=== PATIENT | female | born 1935 | race Caucasian/White ===

== ENCOUNTER 2018-02-10 08:58 | Observation (INO) ==
--- NOTE | 2018-02-10 09:34 | Emergency Department Note ---
Disposition Clinical Impression: Rectal bleeding Anemia Qualifiers: Anemia type: unspecified type Qualified Code(s): D64.9 - Anemia, unspecified Disposition: Admitted As Inpatient Condition: Fair Referrals: Philomena Hill CNP [Primary Care Provider] - Forms: ED Satisfaction Letter, Work/School Release Time of Disposition: 12:02 General Adult HPI - General Chief complaint: ED General Medical Stated complaint: Hallucinations/UTI Time Seen by Provider: 02/10/18 09:22 Source: patient, family Mode of arrival: ambulatory Limitations: no limitations Nursing Notes Reviewed: Yes Vital Signs Reviewed: Yes - History of Present Illness HPI Narrative: 82-year-old who comes in stating that she has had bugs crawling out of her skin for about a month according to family. Patient has complained of bugs crawling out of her skin she has used tape to try and capture them up. It looks like when she shows me this that it is scabs that have been torn off her skin. Left arm shows significant areas where she has picked the right does not show a large amount to the patient is right handed. Pt Subjective Complaint: Possible hallucinations Location: left, upper extremity Pain Scale: 0 - Related Data Previous Rx's Medication Instructions Recorded HYDROcodone/Acet 5/325 mg [[place] 1 tab PO Q6H PRN #15 tab 04/27/17 5-325 mg] diazePAM [Valium] 5 mg PO TID #12 tablet 04/27/17 Allergies Allergy/AdvReac Type Severity Reaction Status Date / Time egg Allergy Anaphylaxis Verified 04/23/16 12:28 All systems ED: reviewed and negative except as stated. Constitutional: Denies: fever, chills, weakness, weight change Eyes: Denies: eye pain, eye discharge, vision change ENT ED: Denies: ear pain, throat pain, dental pain, hearing loss, epistaxis, congestion, dysphagia Cardiovascular: Denies: chest pain, palpitations, dyspnea on exertion, edema, syncope Respiratory: Denies: cough, dyspnea, wheezes, hemoptysis, stridor Gastrointestinal: Denies: abdominal pain, nausea, vomiting, diarrhea, constipation, hematemesis, melena, hematochezia Genitourinary: Denies: dysuria, frequency, hematuria, discharge Musculoskeletal: Denies: back pain, neck pain, arthralgia, myalgia Integumentary: Reports: rash. Denies: abrasion, lesions Neurological: Denies: headache, weakness, numbness, paresthesias, confusion, abnormal gait, vertigo Psychiatric: Denies: anxiety, depression, suicidal thoughts, homicidal thoughts , auditory hallucinations, visual hallucinations Endocrine: Denies: fatigue Hematological/Lymphatic: Denies: easy bleeding, easy bruising Allergic/Immunologic: Denies: facial swelling, urticaria Past Medical History - Past Medical History Medical history: Reports: atrial fibrillation, CHF, hypertension Psychiatric history: Reports: no psych history - Social History Smoking Status: Never smoker Smokeless Tobacco Status: No Alcohol use: Reports: none Drug use: Reports: none Physical Exam - General Limitations: no limitations General appearance: alert - Head Head exam: atraumatic, normocephalic, normal inspection - Eye Eye exam: Present: normal appearance, PERRL, EOMI - ENT ENT exam: normal exam, normal oropharynx, mucous membranes moist - Neck Neck exam: Present: normal inspection, full ROM, trachea midline - Chest Chest inspection: Present: normal inspection, symmetric chest wall rise - Respiratory Respiratory exam: Present: normal lung sounds bilaterally - Cardiovascular Cardiovascular exam: Present: regular rate, normal rhythm, normal heart sounds - Abdominal Exam Abdominal exam: Present: soft, Non-Tender. Absent: tenderness, distention, guarding, rebound, rigidity - Rectal Exam Clinical Microbiologist present during exam: Yes Rectal exam: Present: heme (+) stool - Extremities Exam Extremities exam: Present: normal inspection, full ROM. Absent: tenderness, pedal edema - Expanded Lower Extremity Exam Neurovascular/Tendon exam: Absent: motor deficit, sensory deficit, tendon deficit - Back Exam Back exam: Present: normal inspection, full ROM. Absent: tenderness - Neurological Exam Neurological exam: Present: alert, oriented X3 - Psychiatric Psychiatric exam: Present: normal affect, normal mood - Skin Skin exam: Present: warm, dry, intact, normal color, rash (Follicular rash with scabs appears that she has been picking at these scabs there is no evidence of infection at this time.) Course - Reevaluation(s) Reevaluation #1: 82-year-old who comes in with some hallucinations and seeing bugs crawling on her skin. During the workup she was found to have a hemoglobin of 8.4 previous hemoglobin in the normal range. Patient has not had a colonoscopy. On exam her stool was slightly guaiac positive. Previous hemoglobin was in the normal range. Patient normally has her care done at [facility] and request transfer. Time: 12:00 Reevaluation #2: Patient wanted transfer to [facility] however they have no beds and they now are willing to be admitted here. Time: 17:32 - Consultations Consultation #1: Discussed with [facility] transfer center they will call us back with the bed. Time: 12:11 Consultation #2: [facility] informs us that they are not likely to have a bed in the near future. Time: 17:31 Consultation #3: Discussed with , admit. Time: 17:32 Vital Signs Temperature 97.9 F 02/10/18 09:11 Pulse Rate 70 02/10/18 09:11 Respiratory Rate 18 02/10/18 09:11 Blood Pressure 144/79 02/10/18 09:11 O2 Sat by Pulse Oximetry 97 02/10/18 09:11 Temperature 97.9 F 02/10/18 09:11 Pulse Rate 72 02/10/18 13:02 Respiratory Rate 18 02/10/18 13:02 Blood Pressure 142/74 02/10/18 13:02 O2 Sat by Pulse Oximetry 98 02/10/18 13:02 Oxygen Delivery Oxygen Delivery Room Air Medical Decision Making - Lab Data Lab results reviewed: Yes I reviewed the patient's lab results. Result diagrams: 02/10/18 16:34 02/10/18 09:30 Lab Results 02/10/18 02/10/18 02/10/18 Range/Units 09:30 09:30 09:30 WBC 8.4 (4.3-11.1) K/mcL RBC 3.98 (3.82-4.97) M/mcL Hgb 8.4 L (11.5-15.4) g/dL Hct 29.9 L (35.3-44.9) % MCV 75.1 L (83.0-100.0) fL MCH 21.1 L (28.0-33.3) pg MCHC 28.1 L (31.6-35.5) g/dL RDW 20.3 H (11.5-14.5) % Plt Count 273 (140-400) K/mcL MPV 10.6 (9.4-12.4) fL Immature Gran % 0.8 (0-4) % Seg Neutrophils % 74.9 % Lymphocytes % 14.9 % Monocytes % 6.1 % Eosinophils % 2.9 % Basophils % 0.4 % Neutrophils # 6.3 (1.6-8.9) K/mcL Lymphocytes # 1.3 (0.6-4.6) K/mcL Monocytes # 0.5 (0.0-1.3) K/mcL Eosinophils # 0.2 (0.0-0.6) K/mcL Basophils # 0.0 (0.0-0.2) K/mcL Nucleated RBCs/100 WBC 0.4 H (0) /100 WBC Platelet Estimate Normal (Normal) Hypochromasia Present A (Not Present) Anisocytosis 2+ A (Not Present) PT 14.7 H (9.4-12.1) Seconds INR 1.4 APTT 29.9 (26.0-36.0) Seconds Sodium 139 (136-145) mEq/L Potassium 3.8 (3.5-5.1) mEq/L Chloride 108 H (98-107) mEq/L Carbon Dioxide 27 (23-29) mEq/L BUN 17 (8-23) mg/dL Creatinine 0.69 (0.60-1.20) mg/dL Est GFR ( Amer) > 60 (> 60) Est GFR (Non-Af Amer) > 60 (> 60) BUN/Creatinine Ratio 25 (6-26) Glucose 128 H (70-105) mg/dL Calculated Osmolality 291 (280-300) Calcium 9.2 (8.6-10.3) mg/dL Total Bilirubin 0.9 (0.3-1.0) mg/dL Direct Bilirubin 0.3 H (0.0-0.2) mg/dL Indirect Bilirubin 0.6 (0.0-1.2) mg/dL AST 15 (13-39) Units/L ALT 8 (7-52) Units/L Alkaline Phosphatase 100 (34-104) Units/L Troponin I 0.06 H* (< 0.04) ng/mL Serum Total Protein 7.5 (6.4-8.9) g/dL Albumin 3.2 L (3.5-5.7) g/dL Globulin 4.3 H (2.4-3.5) g/dL Albumin/Globulin Ratio 0.7 L (1.1-2.2) TSH 0.024 L (0.340-5.600) mcIU/mL Urine Color (Yellow) Urine Clarity (Clear) Urine pH (5.0-8.0) pH Units Ur Specific [place] (1.010-1.025) Urine Protein (Neg-Trace) mg/dL Urine Glucose (UA) (Normal) mg/dL Urine Ketones (Negative) mg/dL Urine Blood (Negative) Urine Nitrite (Negative) Urine Bilirubin (Negative) Urine Urobilinogen (Normal) mg/dL Ur Leukocyte Esterase (Negative) Urine Microscopic RBC (0-3) per hpf Urine Microscopic WBC (0-3) per hpf Ur Squamous Epith Cells (None-Few) per lpf Urine Bacteria (None-Few) per hpf Hyaline Casts (None-Few) per lpf Ur Culture Indicated? (NO) Urine Opiates Screen (Zuakuz=087) ng/mL Ur Barbiturates Screen (Qigqyn=786) ng/mL Ur Phencyclidine Scrn (Cutoff=25) ng/mL Ur Amphetamines Screen (Dnyxak=8176) ng/mL U Benzodiazepines Scrn (Gbcgqz=925) ng/mL Urine Cocaine Screen (Cutoff= 300) ng/mL U Marijuana (THC) Screen (Cutoff = 50) ng/mL Ethyl Alcohol < 10 (Less than 10) mg/dL 02/10/18 02/10/18 02/10/18 Range/Units 09:32 09:32 16:34 WBC 9.3 (4.3-11.1) K/mcL RBC 3.89 (3.82-4.97) M/mcL Hgb 8.1 L (11.5-15.4) g/dL Hct 28.9 L (35.3-44.9) % MCV 74.3 L (83.0-100.0) fL MCH 20.8 L (28.0-33.3) pg MCHC 28.0 L (31.6-35.5) g/dL RDW 20.5 H (11.5-14.5) % Plt Count 283 (140-400) K/mcL MPV 10.3 (9.4-12.4) fL Immature Gran % (0-4) % Seg Neutrophils % % Lymphocytes % % Monocytes % % Eosinophils % % Basophils % % Neutrophils # (1.6-8.9) K/mcL Lymphocytes # (0.6-4.6) K/mcL Monocytes # (0.0-1.3) K/mcL Eosinophils # (0.0-0.6) K/mcL Basophils # (0.0-0.2) K/mcL Nucleated RBCs/100 WBC (0) /100 WBC Platelet Estimate (Normal) Hypochromasia (Not Present) Anisocytosis (Not Present) PT (9.4-12.1) Seconds INR APTT (26.0-36.0) Seconds Sodium (136-145) mEq/L Potassium (3.5-5.1) mEq/L Chloride (98-107) mEq/L Carbon Dioxide (23-29) mEq/L BUN (8-23) mg/dL Creatinine (0.60-1.20) mg/dL Est GFR ( Amer) (> 60) Est GFR (Non-Af Amer) (> 60) BUN/Creatinine Ratio (6-26) Glucose (70-105) mg/dL Calculated Osmolality (280-300) Calcium (8.6-10.3) mg/dL Total Bilirubin (0.3-1.0) mg/dL Direct Bilirubin (0.0-0.2) mg/dL Indirect Bilirubin (0.0-1.2) mg/dL AST (13-39) Units/L ALT (7-52) Units/L Alkaline Phosphatase (34-104) Units/L Troponin I (< 0.04) ng/mL Serum Total Protein (6.4-8.9) g/dL Albumin (3.5-5.7) g/dL Globulin (2.4-3.5) g/dL Albumin/Globulin Ratio (1.1-2.2) TSH (0.340-5.600) mcIU/mL Urine Color Yellow (Yellow) Urine Clarity Clear (Clear) Urine pH 6.0 (5.0-8.0) pH Units Ur Specific [place] 1.021 (1.010-1.025) Urine Protein Trace (Neg-Trace) mg/dL Urine Glucose (UA) Normal (Normal) mg/dL Urine Ketones Negative (Negative) mg/dL Urine Blood Negative (Negative) Urine Nitrite Negative (Negative) Urine Bilirubin Negative (Negative) Urine Urobilinogen Normal (Normal) mg/dL Ur Leukocyte Esterase Negative (Negative) Urine Microscopic RBC 0-3 (0-3) per hpf Urine Microscopic WBC 0-3 (0-3) per hpf Ur Squamous Epith Cells Many H (None-Few) per lpf Urine Bacteria None Seen (None-Few) per hpf Hyaline Casts None Seen (None-Few) per lpf Ur Culture Indicated? NO (NO) Urine Opiates Screen Negative (Bqivts=285) ng/mL Ur Barbiturates Screen Negative (Mqjtsg=720) ng/mL Ur Phencyclidine Scrn Negative (Cutoff=25) ng/mL Ur Amphetamines Screen Negative (Xnfgsl=6508) ng/mL U Benzodiazepines Scrn Negative (Ekutia=589) ng/mL Urine Cocaine Screen Negative (Cutoff= 300) ng/mL U Marijuana (THC) Screen Negative (Cutoff = 50) ng/mL Ethyl Alcohol (Less than 10) mg/dL - Radiology Data Radiology results reviewed: Yes I reviewed the patient's radiology results. Chest X-Ray 02/10/18 09:30 IMPRESSION: Increased opacities in the lower lungs bilaterally, right greater than left which could be artifactual and related to overlying soft tissue versus pleural effusions with adjacent airspace opacities. D/ : / 02/10/2018 10:16:51 Bailee Ricketts MD / [email or web address] Interpreting Provider: Bailee Ricketts MD Head CT 02/10/18 09:31 IMPRESSION: 1. No acute intracranial abnormality. D/ / 02/10/2018 10:46:43 Francesco Biggs MD / May Segura Interpreting Provider: Francesco Biggs MD - EKG Data EKG #1 EKG attestation: Yes I reviewed and interpreted this EKG. EKG results narrative: EKG shows a paced rhythm.
[2018-02-10 09:49] LABS: Bilirubin,Urine Negative (Negative); Blood,Urine Negative (Negative); Clarity,Urine Clear (Clear); Color,Urine Yellow (Yellow); Glucose,Urine (UA) Normal (Normal); Ketones,Urine Negative (Negative); Leukocyte Esterase,Urine Negative (Negative); Nitrite,Urine Negative (Negative); Protein,Urine Trace mg/dL (Neg-Trace); Specific Gravity,Urine 1.021 (1.010-1.025); Urobilinogen,Urine Normal (Normal)
[2018-02-10 09:53] LABS: Bacteria,Urine None Seen per hpf (None-Few); Hyaline Casts,Urine None Seen per lpf (None-Few); RBC,Urine 0-3 per hpf (0-3); Squamous Epithelial Cell,Urine Many per lpf (None-Few); WBC,Urine 0-3 per hpf (0-3)
[2018-02-10 10:00] LABS: Amphetamine Screen,Urine Negative ng/mL (Cutoff=1000); Barbiturate Screen,Urine Negative ng/mL (Cutoff=200); Benzodiazepines Screen,Urine Negative ng/mL (Cutoff=200); Cannabinoid Screen,Urine Negative ng/mL (Cutoff = 50); Cocaine Screen,Urine Negative ng/mL (Cutoff= 300); Opiate Screen,Urine Negative ng/mL (Cutoff=300); Phencyclidine Screen,Urine Negative ng/mL (Cutoff=25)
[2018-02-10 10:15] LABS: Lymphocytes % 14.9 %; Mean Corpuscular HGB Conc 28.1 g/dL (31.6-35.5); Mean Corpuscular Hemoglobin 21.1 pg (28.0-33.3); Nucleated Red Blood Cells 0.4 /100 WBC (0); Segmented Neutrophils % 74.9 %
[2018-02-10 10:17] LABS: Basophils % 0.4 %; Eosinophils # 0.2 K/mcL (0.0-0.6); Eosinophils % 2.9 %; Hematocrit 29.9 % (35.3-44.9); Hemoglobin 8.4 g/dL (11.5-15.4); Immature Granulocytes % 0.8 % (0-4); Lymphocytes # 1.3 K/mcL (0.6-4.6); Mean Corpuscular Volume 75.1 fL (83.0-100.0); Mean Platelet Volume 10.6 fL (9.4-12.4); Monocytes # 0.5 K/mcL (0.0-1.3); Monocytes % 6.1 %; Neutrophils # 6.3 K/mcL (1.6-8.9); Platelet Count 273 K/mcL (140-400); Red Blood Count 3.98 M/mcL (3.82-4.97); Red Cell Distribution Width 20.3 % (11.5-14.5)
[2018-02-10 10:21] LABS: INR 1.4; Prothrombin Time 14.7 Seconds (9.4-12.1)
[2018-02-10 10:24] LABS: Activated Partial Thrombo Time 29.9 Seconds (26.0-36.0)
[2018-02-10 10:31] LABS: Anisocytosis 2+ (Not Present); Hypochromasia Present (Not Present)
[2018-02-10 10:32] LABS: Platelet Estimate Normal (Normal)
[2018-02-10 10:43] LABS: Alanine Aminotransferase 8 Units/L (7-52); Albumin 3.2 g/dL (3.5-5.7); Albumin/Globulin Ratio 0.7 (1.1-2.2); Alkaline Phosphatase 100 Units/L (34-104); Aspartate Amino Transferase 15 Units/L (13-39); BUN/Creatinine Ratio 25 (6-26); Bilirubin,Direct 0.3 mg/dL (0.0-0.2); Bilirubin,Indirect 0.6 mg/dL (0.0-1.2); Bilirubin,Total 0.9 mg/dL (0.3-1.0); Blood Urea Nitrogen 17 mg/dL (8-23); Calcium 9.2 mg/dL (8.6-10.3); Carbon Dioxide 27 mEq/L (23-29); Chloride 108 mEq/L (98-107); Ethanol < 10 mg/dL (Less than 10); Globulin 4.3 g/dL (2.4-3.5); Glucose 128 mg/dL (70-105); Osmolality,Calculated 291 (280-300); Potassium 3.8 mEq/L (3.5-5.1); Sodium 139 mEq/L (136-145); Total Protein 7.5 g/dL (6.4-8.9); Troponin I 0.06 ng/mL (< 0.04); eGFR For African Americans > 60 (> 60); eGFR For Non-African Americans > 60 (> 60)
[2018-02-10 10:56] LABS: Thyroid Stimulating Hormone 0.024 mcIU/mL (0.340-5.600)
[2018-02-10 16:47] LABS: Hematocrit 28.9 % (35.3-44.9); Hemoglobin 8.1 g/dL (11.5-15.4); Mean Corpuscular Hemoglobin 20.8 pg (28.0-33.3); Mean Corpuscular Volume 74.3 fL (83.0-100.0); Mean Platelet Volume 10.3 fL (9.4-12.4); Platelet Count 283 K/mcL (140-400); Red Blood Count 3.89 M/mcL (3.82-4.97); Red Cell Distribution Width 20.5 % (11.5-14.5)
[2018-02-10 19:17] LABS: Triiodothyronine (T3) Free 3.75 pg/mL (2.50-3.90)
--- NOTE | 2018-02-10 20:24 | Internal Med History&Physical ---
<Cullen Macias - Last Filed: 02/10/18 21:17> Date of Encounter: 02/10/18 Time of Encounter: 19:30 Assessment and Plan (1) Anemia Current visit: Yes Status: Acute Hemoglobin 8.4, repeat 8.1. Previous labs 2 years ago showed normal hemoglobin. Hemoccult-positive stools in the emergency department. Patient denies hematochezia, melena, or change in bowel habits or stool caliber. Denies light-headedness or dizziness. She denies having a colonoscopy or EGD in the past. Family history of colon cancer in her mother at age 74. She usually receives most of her care at [facility], and she had recently been taken off Eliquis for concerns of "bleeding inside". Check iron profile, B12, and folate. Will obtain old medical records to evaluate previous work-up for bleeding. Continue to monitor hemoglobin - if decreasing then will need further evaluation with colonoscopy/EGD (in-patient vs out-patient) Qualifiers: Anemia type: unspecified type Qualified Code(s): D64.9 - Anemia, unspecified (2) Itching Current visit: Yes Status: Acute Patient is able to give a detailed history. She states that it seems to be insect related, however she is understanding when told that is likely not insects. Does not appear to be fixed, false belief. Patient had an residential sales consultant come to the house, without any findings of infestation. Etiology of her itching is not entirely clear, however is likely related to dry skin/eczema. No fever, no leukocytosis, no electrolyte abnormalities, normal hepatic enzymes and normal bilirubin. Head CT shows no acute abnormality. TSH is low, but T3 and T4 are within normal limits. 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 Will obtain a new ultrasound of her thyroid. We will provide hydrocortisone cream, skin emollients, and Benadryl as needed for itching. (3) Atrial fibrillation Current visit: Yes Status: Acute History of chronic A. fib and currently on Tikosyn with pacemaker. Currently HR is paced, regular rate and rhythm. Patient was recently taken off Eliquis and had a procedure recently at [facility]. Will obtain records from [facility] to understand further procedures that have been completed. Qualifiers: Atrial fibrillation type: chronic Qualified Code(s): I48.2 - Chronic atrial fibrillation (4) HTN (hypertension) Current visit: Yes Status: Acute Normotensive. We will continue home metoprolol. Qualifiers: Hypertension type: essential hypertension Qualified Code(s): I10 - Essential (primary) hypertension (5) CHF (congestive heart failure) Current visit: Yes Status: Acute History of CHF without acute exacerbation. She does have bilateral LE edema, but patient reports no changes in her symptoms. Obtain old records from [facility] for further information. Continue Lasix. Qualifiers: Heart failure type: unspecified Heart failure chronicity: chronic Qualified Code(s): I50.9 - Heart failure, unspecified (6) DVT prophylaxis Current visit: Yes Status: Acute SCDs Internal Medicine - H&P: HPI Chief complaint: Hallucinations/Itchy skin Admitted From: Emergency Dept History of present illness: Ms. Durán is a 82 year old female with PMH of A. fib, CHF, and HTN, presented to the emergency department with concerns of intense itching in her left upper extremity and bilateral lower extremities for the past several months. She states that she feels like "bugs are crawling out of her skin". She states that she feels a stinging and a bite, and then the itching begins. She reports that she will scratch the areas, and that she will have small white bugs on her arms, and she has tried to capture the. Her symptoms are worse at night. They did have an residential sales consultant come to the house, without any findings of insect infestation. She denies other concerns. She does report unchanged symptoms of fatigue, dyspnea on exertion, and lower extremity edema. She denies fevers, chills, syncope, recent falls, headaches, memory problems, vision changes, dysarthria, chest pain, palpitations, dyspnea, orthopnea, abdominal pain, nausea , vomiting, change in bowels, hematochezia, melena, dysuria, hematuria, rashes, or leg pain. She denies recent travel. She denies having dementia, psychosis problems, or new medications. She does state that she had a cardiac procedure, and that she recently stopped taking Eliquis. She does have a mass on the right side of her neck, that she states has been evaluated 6-7 years ago and was told that it was not malignant. Past Med Surg Social Fam HX - Past Medical History Medical history: atrial fibrillation, CHF, hypertension Psychiatric history: no psych history - Social History Smoking Status: Never smoker Smokeless Tobacco Status: No Alcohol use: none Drug use: none Internal Medicine - H&P: Meds Atorvastatin [Lipitor] 10 mg PO HS 02/10/18 [History] Calcium Carbonate/Vitamin D3 [Calcium 500-Vit D3 200 Tablet] 1 each PO DAILY 01/25 [History] Dofetilide [Tikosyn] 0.25 mg PO BID 02/10/18 [History] Furosemide [Lasix] 20 mg PO DAILY 02/10/18 [History] Loratadine [Claritin] 10 mg PO DAILY 02/10/18 [History] Magnesium Oxide [Mag-Ox] 400 mg PO DAILY 02/10/18 [History] Metoprolol Tartrate 75 mg PO BID 02/10/18 [History] Potassium Chloride [Klor-Con 10] 10 meq PO DAILY 02/10/18 [History] Vit C/Vit E AC/Lut/Copper/Zinc [Preservision Lutein Softgel] 1 each PO DAILY 01/25 [History] 3 Allergy/AdvReac Type Severity Reaction Status Date / Time egg Allergy Anaphylaxis Verified 04/23/16 12:28 All Systems PM: A 10-system review of systems was performed and is negative for pertinent findings except as documented above in the HPI. - Constitutional Vitals: Temp Pulse Resp BP Pulse Ox 97.9 F 72 18 142/74 98 02/10/18 09:11 02/10/18 13:02 02/10/18 13:02 02/10/18 13:02 02/10/18 13:02 General appearance: Present: A&O X 3, no acute distress, answers questions appropriately - Head Head exam: Present: atraumatic, normocephalic - Eye Eye exam: Present: EOMI, PERRL, conjuntiva pink, sclera anicteric - ENT ENT exam: Present: mucous membranes moist, normal oropharynx - Neck Neck exam general surgery: Present: supple, trachea midline Additional comments: Right sided anteriolateral neck mass, approximately 6-7 cm in diameter, nontender, no skin changes. - Respiratory Respiratory exam: Present: decreased breath sounds. Absent: accessory muscle use, rales, rhonchi, wheezes - Cardiovascular Cardiovascular exam: Present: RRR, +S1, +S2. Absent: diastolic murmur, systolic murmur - GI/Abdominal GI/Abdominal exam: Present: normal bowel sounds, soft, no peritoneal signs. Absent: distended, tenderness - Extremities Exam Extremities exam: Present: pedal edema (Bilateral), warm, radial pulses palpable and symmetrical. Absent: calf tenderness, cyanotic - Neurological Exam Neurological exam: Present: CN II-XII intact, oriented X3, no focal deficits. Absent: facial droop, speech deficit - Skin Skin exam: Present: dry, excoriation (Multiple scabs in various stages of healing, in her left upper extremity and bilateral lower extremities) Internal Med - H&P Results - Labs CBC & Chem 7: 02/10/18 16:34 02/10/18 09:30 Labs: Short CBC 02/10/18 02/10/18 Range/Units 09:30 16:34 WBC 8.4 9.3 (4.3-11.1) K/mcL Hgb 8.4 L 8.1 L (11.5-15.4) g/dL Hct 29.9 L 28.9 L (35.3-44.9) % Plt Count 273 283 (140-400) K/mcL Neutrophils # 6.3 (1.6-8.9) K/mcL BMP 02/10/18 09:30 Sodium 139 Potassium 3.8 Chloride 108 H Carbon Dioxide 27 BUN 17 Creatinine 0.69 Glucose 128 H Calcium 9.2 Cardiac Enzymes 02/10/18 Range/Units 09:30 Troponin I 0.06 H* (< 0.04) ng/mL Liver Function 02/10/18 Range/Units 09:30 Total Bilirubin 0.9 (0.3-1.0) mg/dL Direct Bilirubin 0.3 H (0.0-0.2) mg/dL AST 15 (13-39) Units/L ALT 8 (7-52) Units/L Alkaline Phosphatase 100 (34-104) Units/L Albumin 3.2 L (3.5-5.7) g/dL Urine 02/10/18 Range/Units 09:32 Urine Color Yellow (Yellow) Urine Clarity Clear (Clear) Urine pH 6.0 (5.0-8.0) pH Units Ur Specific [place] 1.021 (1.010-1.025) Urine Protein Trace (Neg-Trace) mg/dL Urine Glucose (UA) Normal (Normal) mg/dL - Impressions ITS Impressions Chest X-Ray 02/10/18 09:30 IMPRESSION: Increased opacities in the lower lungs bilaterally, right greater than left which could be artifactual and related to overlying soft tissue versus pleural effusions with adjacent airspace opacities. D/ : / 02/10/2018 10:16:51 Bailee Ricketts MD / rubén Interpreting Provider: Bailee Ricketts MD Head CT 02/10/18 09:31 IMPRESSION: 1. No acute intracranial abnormality. D/ / 02/10/2018 10:46:43 Francesco Biggs MD / May Segura Interpreting Provider: Francesco Biggs MD <[email or web address] bridges - Last Filed: 02/11/18 01:14> Date of Encounter: 02/10/18 Internal Medicine - H&P: HPI History of present illness: Ms. Durán is a 82 year old female All Systems PM: A 10-system review of systems was performed and is negative for pertinent findings except as documented above in the HPI. - Constitutional Vitals: Temp Pulse Resp BP Pulse Ox 98.8 F 70 16 103/58 93 02/10/18 23:57 02/10/18 23:57 02/10/18 23:57 02/10/18 23:57 02/10/18 23:57 Internal Med - H&P Results - Labs CBC & Chem 7: 02/10/18 16:34 02/10/18 09:30 Labs: Cardiac Enzymes 02/10/18 Range/Units 21:15 Troponin I 0.08 H* (< 0.04) ng/mL - Attending Attestation I examined this patient and my medical decision-making was reviewed with the Resident Physician Dr. Macias. I agree with the documented findings, disposition and treatment plan as described except to the extent set forth below. Ms. Durán is a 82 year old female with PMH of A. fib, CHF, and HTN, presented to the emergency department with concerns of intense itching in her left upper extremity and bilateral lower extremities for the past several months. She states that she feels like "bugs are crawling out of her skin". She states that she feels a stinging and a bite, and then the itching begins. She denied any CP / SOB. She recently had a cardiac procedure done at [facility] in Oct 2017 Gen: A, A, O x 3 Chest; Diminished BS b/l, no crackles no rales Heart: S1S2+ RRR No murmurs Ext: mild eczematous rash.. few insect bite aldridge / scratch aldridge over both upper extremities noticed a/p 1. Acute anemia Possible GI blood loss cont close monitoring check Iron studies in AM 2. Eczema - Insect bite aldridge over b/l UE - Multiple scratch aldridge Hydrocortisone cream Skin emolients 3. Slightly elevated Troponin Mostly demand ischemia asymptomatic now cont trending on Trop
[2018-02-10] MEDS ORDERED: Acetaminophen 325 MG TABLET PO PRN (20:51)
[2018-02-10] MEDS ORDERED: Naloxone 0.4 MG/ML INJ IVP PRN (20:51)
[2018-02-10] MEDS: Cetaphil Lotion 473 ML BOTTLE TP SCH (21:59)
[2018-02-11] MEDS ORDERED: Petrolatum, White OINT.PACK TP PRN (01:15)
--- NOTE | 2018-02-11 05:56 | Electrocardiograph Report ---
[facility] Test Date: 2018-02-10 Pat Name: Braulio Durán Department: 104 Room: 3A42 Gender: F Sisal Picker: : [phone] Requested By: Dipesh Davis Order Number: [id number] Reading MD: Akbar Zavala Measurements Intervals [place] Rate: 70 P: 95 ME: 173 QRS: 246 QRSD: 168 T: 31 QT: 490 QTc: 510 Interpretive Statements ELECTRONIC ATRIAL PACEMAKER ELECTRONIC VENTRICULAR PACEMAKER ABNORMAL RHYTHM ECG Electronically Signed On 02-11-2018 5:54:54 EDT by Akbar Zavala
[2018-02-11 06:32] LABS: Basophils % 0.3 %; Eosinophils # 0.3 K/mcL (0.0-0.6); Eosinophils % 2.8 %; Hemoglobin 7.8 g/dL (11.5-15.4); Immature Granulocytes % 0.6 % (0-4); Lymphocytes # 1.6 K/mcL (0.6-4.6); Lymphocytes % 17.3 %; Mean Corpuscular HGB Conc 27.9 g/dL (31.6-35.5); Mean Corpuscular Hemoglobin 20.6 pg (28.0-33.3); Mean Corpuscular Volume 74.1 fL (83.0-100.0); Mean Platelet Volume 10.8 fL (9.4-12.4); Monocytes # 0.5 K/mcL (0.0-1.3); Monocytes % 5.9 %; Neutrophils # 6.6 K/mcL (1.6-8.9); Platelet Count 254 K/mcL (140-400); Red Blood Count 3.78 M/mcL (3.82-4.97); Red Cell Distribution Width 20.2 % (11.5-14.5); Segmented Neutrophils % 73.1 %
[2018-02-11 06:51] LABS: BUN/Creatinine Ratio 26 (6-26); Blood Urea Nitrogen 17 mg/dL (8-23); Calcium 8.9 mg/dL (8.6-10.3); Carbon Dioxide 28 mEq/L (23-29); Chloride 108 mEq/L (98-107); Glucose 91 mg/dL (70-105); Osmolality,Calculated 289 (280-300); Phosphorous 3.2 mg/dL (2.7-4.5); Potassium 4.2 mEq/L (3.5-5.1); Sodium 139 mEq/L (136-145); eGFR For African Americans > 60 (> 60); eGFR For Non-African Americans > 60 (> 60)
[2018-02-11 07:03] LABS: % Iron Saturation 5 % (15-50); Iron 18 mcg/dL (50-170); Transferrin 263 mg/dL (203-362)
[2018-02-11 07:34] LABS: Hypochromasia Present (Not Present)
[2018-02-11 07:35] LABS: Platelet Estimate Normal (Normal)
[2018-02-11] MEDS: Magnesium Oxide 400 MG TABLET PO SCH (08:08)
[2018-02-11] MEDS: Furosemide 20 MG TABLET PO SCH (08:08)
[2018-02-11] MEDS: Loratadine 10 MG TABLET PO SCH ×2 (08:08→08:26)
[2018-02-11] MEDS: Cetaphil Lotion 473 ML BOTTLE TP SCH (08:28)
[2018-02-11] MEDS ORDERED: PRESERVISION LUTEIN PO SCH (09:00)
--- NOTE | 2018-02-11 12:33 | Internal Med Progress Note ---
Date of Encounter: 02/11/18 Time of Encounter: 12:31 - Assessment and plan (1) Anemia Current Visit: Yes Status: Acute Assessment and plan: Last normal hemoglobin but chart was 2 years ago. Patient possibly has acute on chronic anemia secondary to GI bleed. MCV is 17, INR cultures iron deficiency. GI has been consulted for endoscopy. Patient is hemodynamically stable and asymptomatic at rest. There is no current indication for transfusion. Continue to monitor hemoglobin and transfuse for hemoglobin less than 7 or hemodynamic instability. Qualifiers: Anemia type: unspecified type Qualified Code(s): D64.9 - Anemia, unspecified (2) Atrial fibrillation Current Visit: Yes Status: Chronic Assessment and plan: Heart rate is controlled. Not on anticoagulation. Continue current medications. Qualifiers: Atrial fibrillation type: chronic Qualified Code(s): I48.2 - Chronic atrial fibrillation (3) CHF (congestive heart failure) Current Visit: Yes Status: Chronic Assessment and plan: Stated history. Euvolemic on exam. Continue home medications. Qualifiers: Heart failure type: unspecified Heart failure chronicity: chronic Qualified Code(s): I50.9 - Heart failure, unspecified (4) DVT prophylaxis Current Visit: Yes Status: Acute Assessment and plan: SCDS due to suspected GIB (5) HTN (hypertension) Current Visit: Yes Status: Chronic Assessment and plan: continue home meds Qualifiers: Hypertension type: essential hypertension Qualified Code(s): I10 - Essential (primary) hypertension (6) Itching Current Visit: Yes Status: Acute Assessment and plan: Patient with bed bug shells found in her home Continue supportive care (7) GI bleed Current Visit: Yes Status: Suspected Assessment and plan: suspected due to microcytic anemia NPO For endoscopy by GI PPI BID Qualifiers: GI bleed type/associated pathology: unspecified gastrointestinal hemorrhage type Qualified Code(s): K92.2 - Gastrointestinal hemorrhage, unspecified - Time Spent With Patient Total time spent is greater than 50% in coordination of care (as documented) at patient's floor/unit and/or counseling patient: - Subjective Interval history: 82-year-old female admitted and being managed for microcytic anemia suspected to be from a GI source. Hb this a.m 7.8, patient is hemodynamically stable and not in any form of distress Admitting hemoglobin is 8.4 Awaiting GI eval She has a family hx of colonic cancer, FOBT positive and she has never had a colonoscopy - Constitutional Vitals: Temp Pulse Resp BP Pulse Ox 97.9 F 72 16 135/83 96 02/11/18 11:05 02/11/18 11:05 02/11/18 11:05 02/11/18 11:05 02/11/18 11:05 General appearance: Present: A&O X 3, pleasant, no acute distress, obese, answers questions appropriately - Head Head exam: Present: atraumatic, normocephalic - Eye Eye exam: Present: PERRL, conjuntiva pink, sclera anicteric Pupils: Present: PERRL - Neck Neck exam general surgery: Present: supple, trachea midline. Absent: lymphadenopathy - Respiratory Respiratory exam: Present: CTAB. Absent: accessory muscle use, rales, rhonchi, wheezes - Cardiovascular Cardiovascular exam: Present: RRR, +S1, +S2. Absent: diastolic murmur, gallop, rubs, systolic murmur - GI/Abdominal GI/Abdominal exam: Present: normal bowel sounds, soft, no peritoneal signs. Absent: distended, tenderness - Extremities Exam Extremities exam: Present: warm, radial pulses palpable and symmetrical. Absent : calf tenderness, cyanotic, pedal edema - Neurological Exam Neurological exam: Present: alert, CN II-XII intact, oriented X3, no focal deficits. Absent: pronater drift, facial droop, speech deficit - Skin Skin exam: Present: dry, intact, rash (multiple healed lesions, possibly insect bites) Internal Medicine: Result - Labs CBC & Chem 7: 02/11/18 05:41 02/11/18 05:41 Labs: Short CBC 02/11/18 Range/Units 05:41 WBC 9.0 (4.3-11.1) K/mcL Hgb 7.8 L (11.5-15.4) g/dL Hct 28.0 L (35.3-44.9) % Plt Count 254 (140-400) K/mcL Neutrophils # 6.6 (1.6-8.9) K/mcL BMP 02/11/18 05:41 Sodium 139 Potassium 4.2 Chloride 108 H Carbon Dioxide 28 BUN 17 Creatinine 0.65 Glucose 91 Calcium 8.9 Cardiac Enzymes 02/10/18 02/11/18 Range/Units 21:15 05:41 Troponin I 0.08 H* 0.08 H* (< 0.04) ng/mL - ABG Interpretation ABG results: PT/INR, D-dimer PT 14.7 Seconds (9.4-12.1) H 02/10/18 09:30 Consult Discharge Plan - Plan Referrals: Philomena Hill, ZOYA [Primary Care Provider] -
--- NOTE | 2018-02-11 13:46 | Gastroenterology Consult Note ---
Date of Encounter: 02/11/18 Time of Encounter: 13:36 - Assessment and plan (1) GI bleed Current Visit: Yes Status: Acute Assessment and plan: Patient with fatigue, dyspnea on exertion, and itching. FOBT was positive. Since admission, HGB has decreased from 14.5 to 7.8 Patient has never had a colonoscopy and reports her mother had colon cancer at 74yo. Start Protonix IV NPO after midnight Anticipate EGD and colonoscopy tomorrow Qualifiers: GI bleed type/associated pathology: unspecified gastrointestinal hemorrhage type Qualified Code(s): K92.2 - Gastrointestinal hemorrhage, unspecified (2) Anemia Current Visit: Yes Status: Acute Assessment and plan: Patient with symptomatic anemia Iron 18, % iron saturation 5, transferrin 263, B12 309, Folate 15 HGB has decreased from 14.5 to 7.8 Transfuse 1 unit PRBC prior to endoscopies Continue to monitor Qualifiers: Anemia type: unspecified type Qualified Code(s): D64.9 - Anemia, unspecified (3) Atrial fibrillation Current Visit: Yes Status: Chronic Assessment and plan: Patient with atrial fibrillation (no longer on anticoagulation) Patient reports having a cardiac ablation procedure at [place] in Oct 2017 and stopped taking Eliquis 01/14/18. INR 1.4 Qualifiers: Atrial fibrillation type: chronic Qualified Code(s): I48.2 - Chronic atrial fibrillation - Time Spent With Patient Total time spent is greater than 50% in coordination of care (as documented) at patient's floor/unit and/or counseling patient: GI History of Present Illness - Data of Consult Patient: new to practice Consult date: 02/11/18 Requesting Physician: Dre Weeks MD - Consult Narrative Reason for consult: Microcytic anemia, positive FOBT, for GI screening History of present illness: Ms. Durán is a 82 year old female with a PMH of atrial fibrillation (no longer on anticoagulation), CHF, and hypertension who presented c/o fatigue, dyspnea on exertion, lower extremity edema, and itching extremities during the night. Since admission, HGB has decreased from 14.5 to 7.8 and FOBT was positive. She has never had a colonoscopy and reports her mother had colon cancer at 74yo. Of note, patient reports having a cardiac ablation procedure at [place] in October 2017 and stopped taking Eliquis 01/14/18. She denies fevers , chills, vision changes, chest pain, orthopnea, abdominal pain, nausea, vomiting, hematochezia, melena, change in bowels, dysuria, hematuria, syncope, recent falls, leg swelling, or recent travel. Colonoscopy: Denies EGD: Denies Past Med Surg Social Fam HX - Past Medical History Medical history: atrial fibrillation, CHF, hypertension Psychiatric history: no psych history - Past Surgical History Surgical History: pacemaker/AICD, other (Cardiac ablation, varicose veins) - Social History Smoking Status: Never smoker Smokeless Tobacco Status: No Alcohol use: none Drug use: none - Family History Mother Hx Family Cancer: Yes (Colon Ca at 74yo) - Gastrointestinal Gastrointestinal: Absent: abdominal pain, bloating, change in bowel habits, coffee ground emesis, constipation, diarrhea, hematemesis, hematochezia, melena , nausea, vomiting - Constitutional Constitutional: fatigue, no anorexia, no weight gain, no weight loss - EENT Nose, mouth and throat: Absent: dysphagia, sore throat - Cardiovascular Cardiovascular ROS: Present: irregular heart rhythm. Absent: chest pain, palpitations - Respiratory Respiratory IM: Present: dyspnea. Absent: cough, hemoptysis - Genitourinary Genitourinary: Absent: change in color, Urinary frequency - Neurological ROS Neurological GI: Present: weakness. Absent: confusion, dizziness, headache( s), memory loss - Hematologic/Lymphatic Hematologic/Lymphatic pediatric: Present: as per HPI. Absent: easy bleeding - Musculoskeletal Musculoskeletal ROS GI: Absent: back pain, joint swelling - Integumentary Integumentary GI: Present: pruritis. Absent: jaundice, rash - Psychiatric ROS Psychiatric GI: Absent: anxiety, depression - Endocrine Endocrine IM: Present: fatigue. Absent: cold intolerance, heat intolerance - Constitutional Vitals: Temp Pulse Resp BP Pulse Ox 97.9 F 72 16 135/83 96 02/11/18 11:05 02/11/18 11:05 02/11/18 11:05 02/11/18 11:05 02/11/18 11:05 General appearance: Present: cooperative, A&O X 3, no acute distress, obese, answers questions appropriately - Head Head exam: Present: atraumatic, normocephalic - Eye Eye exam: Present: normal appearance, sclera anicteric - ENT ENT exam: Present: mucous membranes moist, normal oropharynx - Neck Neck exam general surgery: Present: trachea midline Additional comments: 6cm x7cm anteriolateral right sided neck mass, nontender, no skin changes - Respiratory Respiratory exam: Present: CTAB - Cardiovascular Cardiovascular exam: Present: RRR, +S1, +S2 - GI/Abdominal GI/Abdominal exam: Present: normal bowel sounds, soft, no peritoneal signs. Absent: tenderness - Rectal Rectal exam: Present: deferred - Extremities Exam Extremities exam: Present: warm - Neurological Exam Neurological exam: Present: no focal deficits - Psychiatric Psychiatric exam: Present: normal affect, normal mood - Skin Skin exam: Present: dry, excoriation, normal color, warm. Absent: rash Results - Labs CBC & Chem 7: 02/11/18 05:41 02/11/18 05:41 Labs: Last Result Calcium 8.9 mg/dL (8.6-10.3) 02/11/18 05:41 Iron 18 mcg/dL (50-170) L 02/11/18 05:41 % Saturation 5 % (15-50) L 02/11/18 05:41 Transferrin 263 mg/dL (203-362) 02/11/18 05:41 Troponin I 0.08 ng/mL (< 0.04) H* 02/11/18 05:41 Vitamin B12 309 pg/mL (250-1100) 02/11/18 05:41 Folate 15.0 ng/mL (3.0-16.0) 02/11/18 05:41 Urine Opiates Screen Negative ng/mL (Fjpzgo=163) 02/10/18 09:32 Entire Visit Hgb 7.8 g/dL (11.5-15.4) L 02/11/18 05:41 Hct 28.0 % (35.3-44.9) L 02/11/18 05:41 PT 14.7 Seconds (9.4-12.1) H 02/10/18 09:30 Total Bilirubin 0.9 mg/dL (0.3-1.0) 02/10/18 09:30 AST 15 Units/L (13-39) 02/10/18 09:30 ALT 8 Units/L (7-52) 02/10/18 09:30 Folate 15.0 ng/mL (3.0-16.0) 02/11/18 05:41 - ABG ABG results: PT/INR, D-dimer PT 14.7 Seconds (9.4-12.1) H 02/10/18 09:30 - Impressions ITS Impressions Chest X-Ray 02/10/18 09:30 IMPRESSION: Increased opacities in the lower lungs bilaterally, right greater than left which could be artifactual and related to overlying soft tissue versus pleural effusions with adjacent airspace opacities. D/ : / 02/10/2018 10:16:51 Bailee Ricketts MD / rubén Interpreting Provider: Bailee Ricketts MD Head CT 02/10/18 09:31 IMPRESSION: 1. No acute intracranial abnormality. D/ / 02/10/2018 10:46:43 Francesco Biggs MD / May Segura Interpreting Provider: Francesco Biggs MD Consult Discharge Plan - Plan Referrals: Philomena Hill CNP [Primary Care Provider] -
[2018-02-11] MEDS ORDERED: 0.9 % Sodium Chloride 500 ML ONE (17:07)
[2018-02-11] MEDS ORDERED: SODIUM CHLORIDE/NAHCO3/KCL/PEG 4,000 ML SOLN.RECON PO ONE (19:00)
[2018-02-11] MEDS: Pantoprazole 40 MG VIAL IVP SCH (19:18)
[2018-02-12] MEDS: Pantoprazole 40 MG VIAL IVP SCH ×2 (05:07→16:57)
[2018-02-12 06:13] LABS: Basophils % 0.4 %; Eosinophils # 0.3 K/mcL (0.0-0.6); Eosinophils % 3.3 %; Hematocrit 32.1 % (35.3-44.9); Hemoglobin 9.3 g/dL (11.5-15.4); Immature Granulocytes % 0.9 % (0-4); Lymphocytes # 0.8 K/mcL (0.6-4.6); Mean Corpuscular Hemoglobin 21.8 pg (28.0-33.3); Mean Corpuscular Volume 75.4 fL (83.0-100.0); Mean Platelet Volume 10.8 fL (9.4-12.4); Monocytes # 0.5 K/mcL (0.0-1.3); Monocytes % 6.7 %; Neutrophils # 6.4 K/mcL (1.6-8.9); Nucleated Red Blood Cells 0.5 /100 WBC (0); Platelet Count 270 K/mcL (140-400); Red Blood Count 4.26 M/mcL (3.82-4.97); Red Cell Distribution Width 20.1 % (11.5-14.5); Segmented Neutrophils % 78.7 %
[2018-02-12 06:24] LABS: BUN/Creatinine Ratio 23 (6-26); Blood Urea Nitrogen 14 mg/dL (8-23); Calcium 9.1 mg/dL (8.6-10.3); Carbon Dioxide 25 mEq/L (23-29); Chloride 111 mEq/L (98-107); Glucose 90 mg/dL (70-105); Osmolality,Calculated 284 (280-300); Potassium 4.1 mEq/L (3.5-5.1); Sodium 137 mEq/L (136-145); eGFR For African Americans > 60 (> 60); eGFR For Non-African Americans > 60 (> 60)
[2018-02-12] MEDS: Cetaphil Lotion 473 ML BOTTLE TP SCH (07:36)
[2018-02-12] MEDS: Loratadine 10 MG TABLET PO SCH (07:36)
[2018-02-12] MEDS: Magnesium Oxide 400 MG TABLET PO SCH (07:37)
[2018-02-12] MEDS: Furosemide 20 MG TABLET PO SCH (07:41)
[2018-02-12] MEDS ORDERED: *HR* FentaNYL (PF) 100 MCG/2 ML VIAL ONE (11:45)
[2018-02-12] MEDS ORDERED: *HR* Midazolam HCl 5 MG/5 ML VIAL IVP ONE (11:45)
--- NOTE | 2018-02-12 12:16 | Internal Med Progress Note ---
Date of Encounter: 02/12/18 Time of Encounter: 10:45 - Assessment and plan (1) Anemia Current Visit: Yes Status: Acute Assessment and plan: Last normal hemoglobin 2014, was 14. Patient possibly has acute on chronic anemia secondary to GI bleed. MCV is 70, work up showed iron deficiency. GI has been consulted for endoscopy-scheduled for today She received one unit RBCs 4/4 Hb today 9.8 Continue to monitor. Qualifiers: Anemia type: unspecified type Qualified Code(s): D64.9 - Anemia, unspecified (2) Atrial fibrillation Current Visit: Yes Status: Chronic Assessment and plan: With ICD/PCM Heart rate is controlled. Not on anticoagulation, states eliquis was stopped after ablation done at [place]. Continue current medications. Qualifiers: Atrial fibrillation type: chronic Qualified Code(s): I48.2 - Chronic atrial fibrillation (3) CHF (congestive heart failure) Current Visit: Yes Status: Chronic Assessment and plan: Stated per history. Euvolemic on exam. Continue home medications Qualifiers: Heart failure type: unspecified Heart failure chronicity: chronic Qualified Code(s): I50.9 - Heart failure, unspecified (4) DVT prophylaxis Current Visit: Yes Status: Acute Assessment and plan: SCDS due to suspected GIB (5) HTN (hypertension) Current Visit: Yes Status: Chronic Assessment and plan: continue home meds Qualifiers: Hypertension type: essential hypertension Qualified Code(s): I10 - Essential (primary) hypertension (6) Itching Current Visit: Yes Status: Acute Assessment and plan: Patient with bed bug shells found in her home Continue supportive care (7) GI bleed Current Visit: Yes Status: Suspected Assessment and plan: suspected due to microcytic anemia NPO For endoscopy by GI PPI BID Qualifiers: GI bleed type/associated pathology: unspecified gastrointestinal hemorrhage type Qualified Code(s): K92.2 - Gastrointestinal hemorrhage, unspecified - Time Spent With Patient Total time spent is greater than 50% in coordination of care (as documented) at patient's floor/unit and/or counseling patient: - Subjective Interval history: 82-year-old female admitted and being managed for microcytic anemia suspected to be from a GI source. Hb 4/4 7.8, patient is hemodynamically stable and not in any form of distress Admitting hemoglobin is 8.4 Awaiting endoscopy today No new complains She has a family hx of colonic cancer, FOBT positive and she has never had a colonoscopy - Constitutional Vitals: Temp Pulse Resp BP Pulse Ox 98.2 F 61 18 145/73 97 02/12/18 11:52 02/12/18 11:52 02/12/18 11:52 02/12/18 11:52 02/12/18 11:52 General appearance: Present: A&O X 3, pleasant, no acute distress, obese, answers questions appropriately - Head Head exam: Present: atraumatic, normocephalic - Eye Eye exam: Present: PERRL, conjuntiva pink, sclera anicteric Pupils: Present: PERRL - Neck Neck exam general surgery: Present: supple, trachea midline. Absent: lymphadenopathy - Respiratory Respiratory exam: Present: CTAB. Absent: accessory muscle use, rales, rhonchi, wheezes - Cardiovascular Cardiovascular exam: Present: RRR, +S1, +S2. Absent: diastolic murmur, gallop, rubs, systolic murmur - GI/Abdominal GI/Abdominal exam: Present: normal bowel sounds, soft, no peritoneal signs. Absent: distended, tenderness - Extremities Exam Extremities exam: Present: warm, radial pulses palpable and symmetrical. Absent : calf tenderness, cyanotic, pedal edema - Neurological Exam Neurological exam: Present: alert, CN II-XII intact, oriented X3, no focal deficits. Absent: pronater drift, facial droop, speech deficit - Skin Skin exam: Present: dry, intact Additional comments: bug bites, different stages of healing Internal Medicine: Result - Labs CBC & Chem 7: 02/12/18 05:20 02/12/18 05:20 Labs: Short CBC 02/12/18 Range/Units 05:20 WBC 8.1 (4.3-11.1) K/mcL Hgb 9.3 L D (11.5-15.4) g/dL Hct 32.1 L (35.3-44.9) % Plt Count 270 (140-400) K/mcL Neutrophils # 6.4 (1.6-8.9) K/mcL BMP 02/12/18 05:20 Sodium 137 Potassium 4.1 Chloride 111 H Carbon Dioxide 25 BUN 14 Creatinine 0.61 Glucose 90 Calcium 9.1 - ABG Interpretation ABG results: PT/INR, D-dimer PT 14.7 Seconds (9.4-12.1) H 02/10/18 09:30 Consult Discharge Plan - Plan Referrals: Philomena Hill, ZOYA [Primary Care Provider] -
[2018-02-12] MEDS ORDERED: Lidocaine -MPF 2% 2 ML VIAL ONE (12:38)
[2018-02-12] MEDS ORDERED: *HR* Phenylephrine 10 MG/ML VIAL ONE (13:05)
--- NOTE | 2018-02-12 13:27 | Anesthesia Evaluation PreOp ---
Date of Encounter: 02/12/18 Time of Encounter: 13:25 - Past History Planned Operation: Colonoscopy Cardiac History: CHF, HTN, Hyperlipidemia, Arrhythmia (AFib), Pacemaker/ICD ( AICD), Other (Anemia) Pulmonary History: Denies Any Significant HX TELLER VAULT History: Denies Any Significant HX Other Medical History: Denies Any Significant HX Anesthesia History: No Prior Anesthetic Complications Alcohol Use: none Drug use: none Medications and Allergies Atorvastatin [Lipitor] 10 mg PO HS 02/10/18 [History] Calcium Carbonate/Vitamin D3 [Calcium 500-Vit D3 200 Tablet] 1 each PO DAILY 01/25 [History] Dofetilide [Tikosyn] 0.25 mg PO BID 02/10/18 [History] Furosemide [Lasix] 20 mg PO DAILY 02/10/18 [History] Loratadine [Claritin] 10 mg PO DAILY 02/10/18 [History] Magnesium Oxide [Mag-Ox] 400 mg PO DAILY 02/10/18 [History] Metoprolol Tartrate 75 mg PO BID 02/10/18 [History] Potassium Chloride [Klor-Con 10] 10 meq PO DAILY 02/10/18 [History] Vit C/Vit E AC/Lut/Copper/Zinc [Preservision Lutein Softgel] 1 each PO DAILY 01/25 [History] 3 Allergy/AdvReac Type Severity Reaction Status Date / Time egg Allergy Anaphylaxis Verified 04/23/16 12:28 - Meds/Allergy Pre-op Review Medications Reviewed: Yes Allergies Reviewed: Yes Beta Blockers on Current Med List: No Anesthesia Results - Labs 02/12/18 05:20 02/12/18 05:20 - Imaging EKG: report reviewed (Electronic Atrial Pacemaker) Anesthesia Exam Vital Signs/O2 Sat/Glucose, Most Current Temp Pulse Resp BP Pulse Ox 02/12/18 11:52 98.2 F 60 18 145/73 97 Height: 5'3 Weight: 198 lbs NPO (# of Hours): MN Pain Scale: 0 - HEENT Pupil (Motor): Pupils equal, EOMI Mallampati: III Teeth: Edentulous Oral Opening: Less than or equal to 3 - TELLER VAULT LOC: Oriented TELLER VAULT Motor: Normal RUE, Normal LUE, Normal RLE, Normal LLE, Normal Face TELLER VAULT Sensory: Normal: RUE, LUE, RLE, LLE, Face - Cardiac Rhythm: Regular Murmur: None JVD: No Carotid Bruit: No - Pulmonary Breath Sounds: bilateral Clear Respiratory Effort: Symmetrical Anesthesia Assess/Plan ASA Score: 4 (HTN Anemia AFib Cardiomyopathy requiring AICD/Pacemaker) Modified Marisol Scale for Level of Consciousness: Cooperative, oriented, and tranquil Anesthetic Plan: MAC Monitoring Plan: Standard Monitors Recovery Plan: Other (Discussed MAC, agrees to proceed)
[2018-02-12] MEDS ORDERED: Tetracaine/Benzocaine/Butamben 200MG/SPRAY (100SPY/BOT) MM ONE (14:08)
--- NOTE | 2018-02-12 14:25 | Event Note ---
<Rodger Espino - Last Filed: 02/12/18 14:23> Date of Encounter: 02/12/18 Time of Encounter: 14:23 EGD and colonoscopy revealed esophageal ulcers, chronic gastritis, and colon polyp which was ressected. Pathology results pending. Avoid any blood thinners for 10 days due to polypectomy. <Jason Camacho - Last Filed: 03/02/18 09:28> Date of Encounter: 02/12/18 I examined this patient and my medical decision-making was reviewed with the Resident Physician. I agree with the documented findings, disposition and treatment plan as described except to the extent set forth below.
[2018-02-13 05:42] LABS: Basophils % 0.4 %; Eosinophils # 0.3 K/mcL (0.0-0.6); Eosinophils % 3.4 %; Hematocrit 29.7 % (35.3-44.9); Hemoglobin 8.7 g/dL (11.5-15.4); Immature Granulocytes % 1.5 % (0-4); Lymphocytes # 1.1 K/mcL (0.6-4.6); Lymphocytes % 14.7 %; Mean Corpuscular HGB Conc 29.3 g/dL (31.6-35.5); Mean Corpuscular Hemoglobin 21.7 pg (28.0-33.3); Mean Corpuscular Volume 74.1 fL (83.0-100.0); Mean Platelet Volume 10.8 fL (9.4-12.4); Monocytes # 0.8 K/mcL (0.0-1.3); Monocytes % 10.5 %; Neutrophils # 5.3 K/mcL (1.6-8.9); Nucleated Red Blood Cells 0.3 /100 WBC (0); Platelet Count 232 K/mcL (140-400); Red Blood Count 4.01 M/mcL (3.82-4.97); Red Cell Distribution Width 20.5 % (11.5-14.5); Segmented Neutrophils % 69.5 %
[2018-02-13] MEDS: Pantoprazole 40 MG VIAL IVP SCH (05:58)
--- NOTE | 2018-02-13 08:26 | Gastroenterology Progress Note ---
<Rodger Espino - Last Filed: 02/13/18 11:40> Date of Encounter: 02/13/18 Time of Encounter: 08:24 - Assessment and plan (1) GI bleed Status: Suspected Assessment and plan: Patient with fatigue, dyspnea on exertion, and itching. FOBT was positive. EGD revealed non-bleeding esophageal ulcers and chronic gastritis Colonoscopy revealed non-bleeding internal hemorrhoids and polyp. Pathology results pending Protonix PO BID and Carafate Avoid any blood thinners for 10 days Stable from a GI standpoint. Follow up with GI in clinic in 1 week Qualifiers: GI bleed type/associated pathology: unspecified gastrointestinal hemorrhage type Qualified Code(s): K92.2 - Gastrointestinal hemorrhage, unspecified (2) Anemia Status: Acute Assessment and plan: Patient with symptomatic anemia Iron 18, % iron saturation 5, transferrin 263, B12 309, Folate 15 HGB stable s/p transfuse 1 unit PRBC Continue to monitor Qualifiers: Anemia type: iron deficiency Iron deficiency anemia type: chronic blood loss Qualified Code(s): D50.0 - Iron deficiency anemia secondary to blood loss (chronic) (3) Atrial fibrillation Status: Chronic Assessment and plan: Patient with atrial fibrillation (no longer on anticoagulation) Patient reports having a cardiac ablation procedure at [place] in Oct 2017 and stopped taking Eliquis 01/14/18. INR 1.4 Avoid any blood thinners for at least 10 days s/p polypectomy Qualifiers: Atrial fibrillation type: chronic Qualified Code(s): I48.2 - Chronic atrial fibrillation - Time Spent With Patient Total time spent is greater than 50% in coordination of care (as documented) at patient's floor/unit and/or counseling patient: - Subjective Interval history: Patient seen and examined. Patient reports mild abd discomfort and denies and any new c/o. Patient is tolerating PO intake and is eager to go home. - Constitutional Vitals: Temp Pulse Resp BP Pulse Ox 99.2 F 73 15 141/81 95 02/13/18 07:09 02/13/18 07:09 02/13/18 07:09 02/13/18 07:09 02/13/18 07:09 General appearance: Present: cooperative, A&O X 3, no acute distress, obese, answers questions appropriately - Head Head exam: Present: atraumatic, normocephalic - Eye Eye exam: Present: normal appearance, sclera anicteric - Neck Neck exam general surgery: Present: normal inspection, trachea midline - Respiratory Respiratory exam: Present: CTAB - Cardiovascular Cardiovascular exam: Present: RRR, +S1, +S2 - GI/Abdominal GI/Abdominal exam: Present: normal bowel sounds, soft (obese), tenderness (mild) , no peritoneal signs - Rectal Rectal exam: Present: deferred - Extremities Exam Extremities exam: Present: warm - Neurological Exam Neurological exam: Present: no focal deficits - Psychiatric Psychiatric exam: Present: normal affect, normal mood - Skin Skin exam: Present: dry, intact, normal color, warm Results - Labs CBC & Chem 7: 02/13/18 05:08 02/12/18 05:20 Labs: Last Result Calcium 9.1 mg/dL (8.6-10.3) 02/12/18 05:20 Iron 18 mcg/dL (50-170) L 02/11/18 05:41 % Saturation 5 % (15-50) L 02/11/18 05:41 Transferrin 263 mg/dL (203-362) 02/11/18 05:41 Troponin I 0.08 ng/mL (< 0.04) H* 02/11/18 05:41 Vitamin B12 309 pg/mL (250-1100) 02/11/18 05:41 Folate 15.0 ng/mL (3.0-16.0) 02/11/18 05:41 Urine Opiates Screen Negative ng/mL ([id number]) 02/10/18 09:32 Entire Visit Hgb 8.7 g/dL (11.5-15.4) L 02/13/18 05:08 Hct 29.7 % (35.3-44.9) L 02/13/18 05:08 PT 14.7 Seconds (9.4-12.1) H 02/10/18 09:30 Total Bilirubin 0.9 mg/dL (0.3-1.0) 02/10/18 09:30 AST 15 Units/L (13-39) 02/10/18 09:30 ALT 8 Units/L (7-52) 02/10/18 09:30 Folate 15.0 ng/mL (3.0-16.0) 02/11/18 05:41 - ABG ABG results: PT/INR, D-dimer PT 14.7 Seconds (9.4-12.1) H 02/10/18 09:30 Consult Discharge Plan - Plan Referrals: Philomena Hill CNP [Primary Care Provider] - 02/20/18 1:00 pm Prescriptions: Ferrous Sulfate 325 mg PO BIDWM #60 tablet Omeprazole [PriLOSEC] 40 mg PO BID #60 cap <Jason Camacho - Last Filed: 03/04/18 05:11> Date of Encounter: 02/13/18 - Time Spent With Patient Total time spent is greater than 50% in coordination of care (as documented) at patient's floor/unit and/or counseling patient: - Constitutional Vitals: Temp Pulse Resp BP Pulse Ox 98.4 F 71 15 105/70 92 02/13/18 10:50 02/13/18 10:50 02/13/18 10:50 02/13/18 10:50 02/13/18 10:50 Results - Labs CBC & Chem 7: 02/13/18 05:08 02/12/18 05:20 Labs: Last Result Calcium 9.1 mg/dL (8.6-10.3) 02/12/18 05:20 Iron 18 mcg/dL (50-170) L 02/11/18 05:41 % Saturation 5 % (15-50) L 02/11/18 05:41 Transferrin 263 mg/dL (203-362) 02/11/18 05:41 Troponin I 0.08 ng/mL (< 0.04) H* 02/11/18 05:41 Vitamin B12 309 pg/mL (250-1100) 02/11/18 05:41 Folate 15.0 ng/mL (3.0-16.0) 02/11/18 05:41 Urine Opiates Screen Negative ng/mL (Kvycmr=565) 02/10/18 09:32 Entire Visit Hgb 8.7 g/dL (11.5-15.4) L 02/13/18 05:08 Hct 29.7 % (35.3-44.9) L 02/13/18 05:08 PT 14.7 Seconds (9.4-12.1) H 02/10/18 09:30 Total Bilirubin 0.9 mg/dL (0.3-1.0) 02/10/18 09:30 AST 15 Units/L (13-39) 02/10/18 09:30 ALT 8 Units/L (7-52) 02/10/18 09:30 Folate 15.0 ng/mL (3.0-16.0) 02/11/18 05:41 - ABG ABG results: PT/INR, D-dimer PT 14.7 Seconds (9.4-12.1) H 02/10/18 09:30 - Attending Attestation Agree. I examined this patient and my medical decision-making was reviewed with the Resident Physician. I agree with the documented findings, disposition and treatment plan as described except to the extent set forth below.
[2018-02-13] MEDS: Magnesium Oxide 400 MG TABLET PO SCH (09:23)
[2018-02-13] MEDS: Furosemide 20 MG TABLET PO SCH (09:23)
[2018-02-13] MEDS: Loratadine 10 MG TABLET PO SCH (09:23)
[2018-02-13] MEDS: Cetaphil Lotion 473 ML BOTTLE TP SCH (09:24)
[2018-02-13 10:53] VITALS: BP 105/70
--- NOTE | 2018-02-13 11:32 | Discharge Summary ---
- NOTES TO OUTPATIENT PROVIDER Notes to Outpatient Provider: Patient presented with acute on chronic anemia, Iron deficiency anemia, suspected to be due to GIB. She underwent EGD and Colonoscopy which revealed esophageal ulcers and chronic gastritis-biopsied, she also had polyps that were removed-biopsied. Follow up with these biopsies please,. She is dischrged on BID PPI. 40mg BID. Iron level is 18, with 5% saturation, she is also discharged on FeSO4. TSH was low but Free T3 and T4 were WNL. Orders not resulted at time of discharge: Pending orders 02/12/18 14:25 Surgical Pathology [PTH] Routine Date of Encounter: 02/13/18 Time of Encounter: 09:55 - Discharge Diagnosis (1) Anemia Priority: Primary Status: Acute Qualifiers: Anemia type: iron deficiency Iron deficiency anemia type: chronic blood loss Qualified Code(s): D50.0 - Iron deficiency anemia secondary to blood loss (chronic) (2) Atrial fibrillation Priority: Secondary Status: Chronic Qualifiers: Atrial fibrillation type: chronic Qualified Code(s): I48.2 - Chronic atrial fibrillation (3) CHF (congestive heart failure) Priority: Secondary Status: Chronic Qualifiers: Heart failure type: unspecified Heart failure chronicity: chronic Qualified Code(s): I50.9 - Heart failure, unspecified (4) DVT prophylaxis Priority: Primary Status: Acute (5) HTN (hypertension) Priority: Secondary Status: Chronic Qualifiers: Hypertension type: essential hypertension Qualified Code(s): I10 - Essential (primary) hypertension (6) Itching Priority: Primary Status: Acute (7) GI bleed Priority: Secondary Status: Suspected Qualifiers: GI bleed type/associated pathology: unspecified gastrointestinal hemorrhage type Qualified Code(s): K92.2 - Gastrointestinal hemorrhage, unspecified Hospital course: Ms. Durán is a 82 year old female with hx of Afib s/pm AICD/PCm as well as abaltion, HTN, Chronic anemia, followig up at [facility], who presented with symptomatic anemia, iron defficiency anemia suspected to be due to GI bleed Presenting Hb was 8.4, FOBT was positive, she received one unit of RBCs 02/11 on 02/12 She underwent EGD and Colonoscopy whihc revealed esophageal ulcers and chronic gastritis-biopsied, she also had polyps that were removed-biopsied. Her hb is stabel at 8 this a.m She is seen and evaluated at bedside and had no new complains, she ia tolerating po and ambualtory and asking to be discharged home Work up aslo showed JAREN , for which the patient is discharged on FeSO4. Iron level is 18, with 5% saturation, she is also discharged on FeSO4. TSH was low but Free T3 and T4 were WNL. She is also discharged on BID 40mg BID. Physical exam is unremarkable this a.m and catrachito other chronic medical conditions are stable Follow up with PCP Discharge discussed with: patient, nurse, social work, case management - Time Spent with Patient Total time spent providing and/or coordinating discharge services: Greater than 30 minutes - Discharge Medications Prescriptions: Omeprazole [PriLOSEC] 40 mg PO BID #60 cap Home Medications: Atorvastatin [Lipitor] 10 mg PO HS 02/10/18 [History] Calcium Carbonate/Vitamin D3 [Calcium 500-Vit D3 200 Tablet] 1 each PO DAILY 01/25 [History] Dofetilide [Tikosyn] 0.25 mg PO BID 02/10/18 [History] Furosemide [Lasix] 20 mg PO DAILY 02/10/18 [History] Loratadine [Claritin] 10 mg PO DAILY 02/10/18 [History] Magnesium Oxide [Mag-Ox] 400 mg PO DAILY 02/10/18 [History] Metoprolol Tartrate 75 mg PO BID 02/10/18 [History] Potassium Chloride [Klor-Con 10] 10 meq PO DAILY 02/10/18 [History] Vit C/Vit E AC/Lut/Copper/Zinc [Preservision Lutein Softgel] 1 each PO DAILY 01/25 [History] Omeprazole [PriLOSEC] 40 mg PO BID #60 cap 02/13/18 [Rx] Allergies/Adverse Reactions: 3 Allergy/AdvReac Type Severity Reaction Status Date / Time egg Allergy Anaphylaxis Verified 04/23/16 12:28 Date of admission: 02/10/18 20:56 Primary care physician: Philomena Hill, Consults: 02/11/18 08:48 Consult to Gastroenterology [CONS] Routine Consulting Provider: [facility] Reason for Consult: Microcytic anemia, positive FOBT, for GI screening Call Completed: No 02/11/18 09:14 Consult to Nurse Navigator [CONS] Routine Comment: chf education Discharging clinician: Dre Weeks Anticipated date of discharge: 02/13/18 - Constitutional Vitals: Temp Pulse Resp BP Pulse Ox 98.4 F 71 15 105/70 92 02/13/18 10:50 02/13/18 10:50 02/13/18 10:50 02/13/18 10:50 02/13/18 10:50 General appearance: Present: A&O X 3, pleasant, no acute distress, obese, answers questions appropriately - Head Head exam: Present: atraumatic, normocephalic - Eye Eye exam: Present: PERRL, conjuntiva pink, sclera anicteric Pupils: Present: PERRL - Neck Neck exam general surgery: Present: supple, trachea midline. Absent: lymphadenopathy - Respiratory Respiratory exam: Present: CTAB. Absent: accessory muscle use, rales, rhonchi, wheezes Additional comments: PCM/AICD - Cardiovascular Cardiovascular exam: Present: RRR, +S1, +S2. Absent: diastolic murmur, gallop, rubs, systolic murmur - GI/Abdominal GI/Abdominal exam: Present: normal bowel sounds, soft, no peritoneal signs. Absent: distended, tenderness - Extremities Exam Extremities exam: Present: warm, radial pulses palpable and symmetrical. Absent : calf tenderness, cyanotic, pedal edema - Neurological Exam Neurological exam: Present: alert, CN II-XII intact, oriented X3, no focal deficits. Absent: pronater drift, facial droop, speech deficit - Skin Skin exam: Present: dry, intact - Patient Status Disposition: Home Health Service Condition: Good Functional capacity at discharge: independent ambulation Overall status at discharge: patient is progressing back to baseline - Discharge Instructions Follow Up With: Philomena Hill CNP [Primary Care Provider] - 02/20/18 1:00 pm - Diet and Activity Activity: resume usual activities as tolerated Diet: low fat, low cholesterol, low salt diet
--- NOTE | 2018-02-13 11:35 | Physician Discharge Referral ---
Home Health/Hosp Referral Info Transfer to: Home Health Attending Provider: junior Weeks Provider in Charge Post Discharge: PCP - Diagnosis (1) Anemia Priority: Primary Status: Acute (2) Atrial fibrillation Priority: Secondary Status: Chronic (3) CHF (congestive heart failure) Priority: Secondary Status: Chronic (4) DVT prophylaxis Priority: Primary Status: Acute (5) HTN (hypertension) Priority: Secondary Status: Chronic (6) Itching Priority: Primary Status: Acute (7) GI bleed Priority: Secondary Status: Suspected - Respiratory Orders Smoking Cessation: Smoking cessation has been advised. For more information, call the [place] Tobacco Quit Line at 3-672-AARO-NOW. - Diet/Nutrition Diet/Nutrition Orders: Cardiac - Services Needed Following services are medically necessary services: Nursing, Home Health Aide - Transfer Medications Prescriptions: Omeprazole [PriLOSEC] 40 mg PO BID #60 cap Home Medications: Atorvastatin [Lipitor] 10 mg PO HS 02/10/18 [History] Calcium Carbonate/Vitamin D3 [Calcium 500-Vit D3 200 Tablet] 1 each PO DAILY 01/25 [History] Dofetilide [Tikosyn] 0.25 mg PO BID 02/10/18 [History] Furosemide [Lasix] 20 mg PO DAILY 02/10/18 [History] Loratadine [Claritin] 10 mg PO DAILY 02/10/18 [History] Magnesium Oxide [Mag-Ox] 400 mg PO DAILY 02/10/18 [History] Metoprolol Tartrate 75 mg PO BID 02/10/18 [History] Potassium Chloride [Klor-Con 10] 10 meq PO DAILY 02/10/18 [History] Vit C/Vit E AC/Lut/Copper/Zinc [Preservision Lutein Softgel] 1 each PO DAILY 01/25 [History] Omeprazole [PriLOSEC] 40 mg PO BID #60 cap 02/13/18 [Rx] Allergies/Adverse Reactions: 3 Allergy/AdvReac Type Severity Reaction Status Date / Time egg Allergy Anaphylaxis Verified 04/23/16 12:28 Certification: Further, I certify that my clinical findings support that this patient is homebound (i.e. absences from home require considerable and taxing effort and are for medical reasons or restorationism services or infrequently or short duration when for other reasons) because: Homebound Reason: Patient requires assistance of a person or device to safely leave home Attestation: My signature below is to certify that this patient is under my care and that I, or nurse practitioner, or a physician's assistant branch operations manager working with me, has a face-to -face encounter with this patient.
--- NOTE | 2018-02-14 13:44 | Electrocardiograph Report ---
[place] [id number] Test Date: 2018-02-11 Pat Name: Braulio Durán Department: 113 Room: 3A42 Gender: F Supervisor [employer]: SAMANTHA : 1935 Requested By: Dre Weeks Order Number: [id number] Reading MD: Millie De Los Santos Measurements Intervals [place] Rate: 70 P: 191 SD: 176 QRS: 242 QRSD: 160 T: 30 QT: 478 QTc: 498 Interpretive Statements ELECTRONIC ATRIAL PACEMAKER ELECTRONIC VENTRICULAR PACEMAKER ABNORMAL RHYTHM ECG Electronically Signed On 02-14-2018 13:42:11 EDT by Millie De Los Santos
== END 2018-02-13 12:26 | disposition home health service (06) ==
LOC: 3ANU 08:58 → EMEROO 08:58 → 3ANU 21:21
PROVIDERS: ADMIT Family Medicine; ATTEND Internal Medicine
PROC: ENDOERT (2018-02-12 13:30)